=== PATIENT | male | born 1995 | race Asian ===

== ENCOUNTER → 2018-08-15 03:50 | Emergency (ER) | payer OTHER ==
--- NOTE | 2018-08-15 04:17 | ED ---
Laceration/Wound HPI - HPI Summary HPI Summary: This patient is a 23 year old M presenting to ED with a chief complaint of facial injury since one hour [facility]. Patient rates the pain 4/10 in severity. Patient was opening a door too fast and hit his forehead on the door. Patient denies any fever, N/V. Patient has no PMHx of HTN, DM, and cardiac disease. He states he is up to date with tetanus. No FHx of HTN, DM, and cardiac disease. Patient drinks rarely and does not use substances or tobacco. - History of Current Complaint Stated Complaint: "CUT ON FORHEAD" PER PT Time Seen by Provider: 08/15/18 04:03 Hx Obtained From: Patient Mechanism of Injury: Other - Opening door too quickly, hit head on door. Aggravating: Nothing Alleviating: Nothing Onset Severity: Mild Current Severity: Mild Pain Intensity: 4 Pain Scale Used: 0-10 Numeric Associated Signs & Symptoms: Negative - Allergy/Home Medications Allergies/Adverse Reactions: Allergies Allergy/AdvReac Type Severity Reaction Status Date / Time No Known Allergies Allergy Verified 08/15/18 03:56 Home Medications: Home Medications NK [No Home Medications Reported] 08/15/18 [History Confirmed 08/15/18] PMH/Surg Hx/FS Hx/Imm Hx Endocrine/Hematology History: Denies: Hx Diabetes Cardiovascular History: Denies: Hx Coronary Artery Disease, Hx Hypertension Infectious Disease History: No Infectious Disease History: Denies: Traveled Outside the [place] in Last 30 Days - Family History Known Family History: Negative: Cardiac Disease, Hypertension, Diabetes - Social History Alcohol Use: Rare Hx Substance Use: No Substance Use Type: Reports: None Hx Tobacco Use: No Smoking Status (MU): Never Smoked Tobacco Review of Systems Negative: Fever Negative: Vomiting, Nausea Positive: Other - Laceration on forehead All Other Systems Reviewed And Are Negative: Yes Physical Exam - Summary Physical Exam Summary: Appearance: Well appearing, no pain distress Skin: warm, dry, reflects adequate perfusion, 1cm laceration on left side of forehead Head/face: normal Eyes: EOMI, DERIC ENT: normal Neck: supple, non-tender Respiratory: CTA, breath sounds present Cardiovascular: RRR, pulses symmetrical Abdomen: non-tender, soft Musculoskeletal: normal, strength/ROM intact Neuro: normal, sensory motor intact, A&Ox3 Triage Information Reviewed: Yes Vital Signs On Initial Exam: Initial Vitals Temp Pulse Resp BP Pulse Ox 98.4 F 64 16 144/96 99 08/15/18 03:54 08/15/18 03:54 08/15/18 03:54 08/15/18 03:54 08/15/18 03:54 Vital Signs Reviewed: Yes Procedures - Laceration/Wound Repair 1 Location: face - Forehead left side Length, Depth and Shape: 1 cm laceration of forehead on left side. Layer Closure?: Yes - Closed with Dermabond, no complications Diagnostics - Vital Signs Vital Signs Temp Pulse Resp BP Pulse Ox 08/15/18 03:54 98.4 F 64 16 144/96 99 - Laboratory Lab Statement: Any lab studies that have been ordered have been reviewed, and results considered in the medical decision making process. Laceration Repair Course/Dx - Course Course Of Treatment: This patient is a 23 year old M presenting to ED with a chief complaint of facial injury since one hour [facility]. Patient has a superficial laceration on his face. The laceration was closed with Dermabond. Patient tolerated it well. No complications. Patient has a history of keloid and was told that he may get keloid with the laceration in the future. Patient was discharged with dx of facial laceration and given instructions to follow-up with his PCP in 3 days for a wound check. Patient understands and agrees with this plan. - Differential Dx Differental Diagnoses: Other - Facial laceration - Clinical Impression Provider Diagnoses: Facial laceration Discharge - Sign-Out/Discharge Documenting (check all that apply): Patient Departure - Discharge Patient Received Moderate/Deep Sedation with Procedure: No - Discharge Plan Condition: Stable Disposition: HOME Patient Education Materials: Facial Laceration (ED) Referrals: [facility] [Outside] - 3 Days Additional Instructions: Follow up with your primary care provider in 3 days for a wound check. RETURN TO EMERGENCY ROOM IF CHANGING OR WORSENING SYMPTOMS. - Attestation Statements Document Initiated by Scribe: Yes Documenting Scribe: Gage Bradley Provider For Whom Scribe is Documenting (Include Credential): Ismael Haley MD Scribe Attestation: Gage Garrison, scribed for Ismael Haley MD on 08/15/18 at 0442. Status of Scribe Document: Ready
[2018-08-15 04:58] VITALS: BP 108/66
== END | disposition home or self-care (01) ==
LOC: ED 03:50
DX: S01.81XA Laceration without foreign body of other part of head, initial encounter (principal); E11.9 Type 2 diabetes mellitus without complications; I10 Essential (primary) hypertension; W22.8XXA Striking against or struck by other objects, initial encounter; Y92.9 Unspecified place or not applicable
CPT/HCPCS: 12011; 99281